=== PATIENT | female | born 1950 | race Caucasian/White ===

== ENCOUNTER 2018-11-09 15:50 | Emergency (ER) | payer MEDICARE, BC ==
[2018-11-09 16:06] VITALS: RESP 16; TEMP 97.8
[2018-11-09] MEDS ORDERED: LIDOCAINE 1% W/EPI MPF 30 ML SOL ONE (16:17)
[2018-11-09 16:52] VITALS: BP 135/69; PULSE 89; O2SAT 99
== END 2018-11-09 16:51 | disposition home or self-care (01) | DRG 204 ==
LOC: ED 15:50
DX: R91.8 Other nonspecific abnormal finding of lung field (principal); L76.22 Postprocedural hemorrhage of skin and subcutaneous tissue following other procedure
CPT/HCPCS: 99282; G0168; A6402

== ENCOUNTER 2019-01-08 12:00 | Inpatient (IN) | payer MEDICARE, BC ==
[2019-01-08] MEDS ORDERED: ALBUTEROL/IPRATROPIUM 1 VIAL SOL ONE (12:09)
[2019-01-08] MEDS ORDERED: ALBUTEROL/IPRATROPIUM 1 VIAL SOL INH ONE (12:12)
[2019-01-08 12:32] LABS: BASOPHILS % (AUTO) 1 % (0-3); EOSINOPHILS % (AUTO) 2 % (0-9); HEMATOCRIT 40 % (35-47); HEMOGLOBIN 12.6 gm/dl (12.0-15.5); LYMPHOCYTES % (AUTO) 16.8 % (10-50); MEAN CORPUSCULAR HEMOGLOBIN 27.5 pg (27.0-32.0); MEAN CORPUSCULAR HGB CONC 31.8 gm/dl (32.0-36.0); MEAN CORPUSCULAR VOLUME 86 fL (81-99); MONOCYTES % (AUTO) 15.7 % (0-12)
[2019-01-08 12:40] LABS: CALCIUM 9.4 mg/dl (8.5-10.1); CARBON DIOXIDE 26.1 mEq/L (21-32); CREATININE 0.9 mg/dl (0.60-1.00); POTASSIUM 3.7 mMol/L (3.5-5.1)
[2019-01-08] MEDS ORDERED: PROCHLORPERAZINE MALEATE 5 MG TAB PO PRN (15:30)
[2019-01-08] MEDS ORDERED: ONDANSETRON 4 MG ODT PO PRN (15:30)
[2019-01-08] MEDS ORDERED: LORAZEPAM 0.5 MG TAB PO PRN (15:30)
[2019-01-08] MEDS ORDERED: APAP/HYDROCODONE 325/7.5 TAB PO PRN (15:30)
[2019-01-08] MEDS: ALBUTEROL/IPRATROPIUM 1 VIAL SOL INH SCH ×2 (15:45→21:17)
[2019-01-08] MEDS ORDERED: SODIUM CHLORIDE 0.9% 50 ML 25 ML IV PRN (17:37)
[2019-01-08] MEDS ORDERED: CEFTRIAXONE 1 GM PDS 1 GM in SODIUM CHLORIDE 0.9% 50 ML 50 ML IV SCH (17:38)
[2019-01-08] MEDS: SOLUMEDROL 125 MG/2 ML 125 MG/2 ML PDS IV SCH ×2 (17:40→21:16)
[2019-01-08] MEDS: SODIUM CHLORIDE 0.9% FLUSH 10 ML SOL IV SCH ×3 (17:40→22:43)
[2019-01-08] MEDS ORDERED: CEFTRIAXONE 1 GM PDS ONE (17:47)
[2019-01-08] MEDS: ALBUTEROL NEB SOL 2.5MG/3ML 1 VIAL SOL NEB PRN ×2 (18:58→22:34)
[2019-01-08] MEDS ORDERED: APAP/HYDROCODONE 1 EACH TABLET PO PRN (19:43)
[2019-01-08] MEDS: TEMAZEPAM 15MG 15 MG CAP PO PRN (21:17)
[2019-01-09] MEDS: ALBUTEROL NEB SOL 2.5MG/3ML 1 VIAL SOL NEB PRN (02:24)
[2019-01-09] MEDS: SOLUMEDROL 125 MG/2 ML 125 MG/2 ML PDS IV SCH ×4 (03:44→21:04)
[2019-01-09] MEDS: ALBUTEROL/IPRATROPIUM 1 VIAL SOL INH SCH ×4 (03:44→21:04)
[2019-01-09] MEDS: SODIUM CHLORIDE 0.9% FLUSH 10 ML SOL IV SCH ×6 (03:46→23:36)
[2019-01-09] MEDS ORDERED: DM/GUAIFENESIN SYRUP 10 ML SYRP ONE (05:42)
[2019-01-09] MEDS: DM/GUAIFENESIN SYRUP 10 ML SYRP PO PRN (05:45)
[2019-01-09] MEDS: LEVOTHYROXINE SODIUM 50 MCG TAB PO SCH (07:09)
[2019-01-09 07:12] LABS: CALCIUM 9.2 mg/dl (8.5-10.1); CARBON DIOXIDE 22.3 mEq/L (21-32); POTASSIUM 3.7 mMol/L (3.5-5.1)
[2019-01-09 07:18] LABS: BASOPHILS % (AUTO) 0 % (0-3); EOSINOPHILS % (AUTO) 0 % (0-9); HEMATOCRIT 35 % (35-47); HEMOGLOBIN 11.8 gm/dl (12.0-15.5); LYMPHOCYTES % (AUTO) 8.2 % (10-50); MEAN CORPUSCULAR HEMOGLOBIN 28.5 pg (27.0-32.0); MEAN CORPUSCULAR HGB CONC 33.7 gm/dl (32.0-36.0); MEAN CORPUSCULAR VOLUME 85 fL (81-99); NEUTROPHILS % (AUTO) 89.5 % (37-80)
[2019-01-09] MEDS ORDERED: ATORVASTATIN 10 MG TAB PO SCH (09:00)
[2019-01-09] MEDS ORDERED: HEPARIN 500 Unit PRE-FILL 100 U/ML SOL IV ONE (09:18)
[2019-01-09] MEDS ORDERED: HEPARIN 500 Unit PRE-FILL 100 U/ML SOL IV PRN (09:22)
[2019-01-09] MEDS: PANTOPRAZOLE SODIUM 40 MG ECT PO SCH (10:05)
[2019-01-09] MEDS: SERTRALINE HYDROCHLORIDE 50 MG TAB PO SCH (10:05)
[2019-01-09] MEDS: AMLODIPINE 5 MG TAB PO SCH (10:05)
[2019-01-09] MEDS: ENOXAPARIN 40 MG SOL SC SCH (10:08)
[2019-01-09] MEDS ORDERED: CEFTRIAXONE 1 GM PDS ONE (15:18)
[2019-01-09] MEDS ORDERED: SODIUM CHLORIDE 0.9% 50 ML 50 ML IV ONE (15:19)
[2019-01-09] MEDS ORDERED: CEFTRIAXONE 1 GM PDS 1 GM in SODIUM CHLORIDE 0.9% 50 ML 50 ML IV SCH (18:00)
[2019-01-09] MEDS ORDERED: PANTOPRAZOLE SODIUM 40 MG ECT PO ONE (21:23)
[2019-01-09] MEDS: TEMAZEPAM 15MG 15 MG CAP PO PRN (21:47)
[2019-01-10] MEDS: DM/GUAIFENESIN SYRUP 10 ML SYRP PO PRN (00:55)
[2019-01-10] MEDS: ALBUTEROL NEB SOL 2.5MG/3ML 1 VIAL SOL NEB PRN (01:05)
[2019-01-10] MEDS: ALBUTEROL/IPRATROPIUM 1 VIAL SOL INH SCH ×2 (03:36→09:17)
[2019-01-10] MEDS: SODIUM CHLORIDE 0.9% FLUSH 10 ML SOL IV SCH ×3 (03:40→06:50)
[2019-01-10] MEDS: SOLUMEDROL 125 MG/2 ML 125 MG/2 ML PDS IV SCH ×2 (03:41→10:00)
[2019-01-10] MEDS: LEVOTHYROXINE SODIUM 50 MCG TAB PO SCH (06:17)
[2019-01-10 06:58] VITALS: BP 124/68; TEMP 97.9
[2019-01-10 07:05] LABS: BASOPHILS % (AUTO) 0 % (0-3); EOSINOPHILS % (AUTO) 0 % (0-9); HEMATOCRIT 36 % (35-47); LYMPHOCYTES % (AUTO) 2.6 % (10-50); MEAN CORPUSCULAR HEMOGLOBIN 28.5 pg (27.0-32.0); MEAN CORPUSCULAR HGB CONC 33.3 gm/dl (32.0-36.0); MEAN CORPUSCULAR VOLUME 85 fL (81-99)
[2019-01-10 07:14] LABS: CARBON DIOXIDE 24.5 mEq/L (21-32); CREATININE 1.03 mg/dl (0.60-1.00); POTASSIUM 3.7 mMol/L (3.5-5.1)
[2019-01-10 09:11] VITALS: RESP 18
[2019-01-10] MEDS: ENOXAPARIN 40 MG SOL SC SCH (09:13)
[2019-01-10] MEDS: PANTOPRAZOLE SODIUM 40 MG ECT PO SCH (09:16)
[2019-01-10] MEDS: SERTRALINE HYDROCHLORIDE 50 MG TAB PO SCH (09:16)
[2019-01-10] MEDS: AMLODIPINE 5 MG TAB PO SCH (09:16)
[2019-01-10 10:00] VITALS: PULSE 90; O2SAT 95
== END 2019-01-10 09:50 | disposition home or self-care (01) | DRG 191 ==
LOC: ED 12:00 → ACUTE CARE 14:15
PROVIDERS: ADMIT Family Medicine; ATTEND Family Medicine
DX: J44.9 Chronic obstructive pulmonary disease, unspecified (principal); J44.1 Chronic obstructive pulmonary disease with (acute) exacerbation; C34.11 Malignant neoplasm of upper lobe, right bronchus or lung; I10 Essential (primary) hypertension; E03.9 Hypothyroidism, unspecified; E78.5 Hyperlipidemia, unspecified; R06.02 Shortness of breath
CPT/HCPCS: 36415; 71045; 71275; 80048; 85025; 93005; 93012; 94150; 94664; 94760; 99283; 99284; J0696; J1644; J1650; J2930; J7613; Q9967; A6232; A9270-GY

== ENCOUNTER 2019-01-30 16:33 | Inpatient (IN) | payer MEDICARE, BC ==
[2019-01-30] MEDS ORDERED: SODIUM CHLORIDE 0.9% 1000ML 1,000 ML IV ONE (17:01)
[2019-01-30] MEDS ORDERED: ALBUTEROL/IPRATROPIUM 1 VIAL SOL INH PRN (17:01)
[2019-01-30] MEDS ORDERED: SOLUMEDROL 125 MG/2 ML 125 MG/2 ML PDS IV ONE (17:01)
[2019-01-30 17:13] LABS: HEMATOCRIT 34 % (35-47); HEMOGLOBIN 11.1 gm/dl (12.0-15.5); MEAN CORPUSCULAR HGB CONC 32.5 gm/dl (32.0-36.0); MEAN CORPUSCULAR VOLUME 86 fL (81-99)
[2019-01-30 17:29] LABS: ALBUMIN 2.8 gm/dl (3.4-5.0); ALKALINE PHOSPHATASE 72 IU/L (46-116); ALT 15 IU/L (14-63); AST 14 IU/L (15-37); BILIRUBIN,TOTAL 0.4 mg/dl (0.2-1.0); BLOOD UREA NITROGEN 14 mg/dl (7-18); CALCIUM 9.4 mg/dl (8.5-10.1); CARBON DIOXIDE 24.1 mEq/L (21-32); CHLORIDE 102 mMol/L (98-107); CREATININE 0.83 mg/dl (0.60-1.00); GLUCOSE 110 mg/dl (74-106); SODIUM 136 mMol/L (136-145); TOTAL PROTEIN 7.4 gm/dl (6.4-8.2); TROP I < 0.017 ng/ml (0.000-0.056)
[2019-01-30] MEDS: SODIUM CHLORIDE 0.9% FLUSH 10 ML SOL IV PRN (17:45)
[2019-01-30] MEDS ORDERED: ACETAMINOPHEN 325 MG PO ONE (17:45)
[2019-01-30] MEDS ORDERED: SOLUMEDROL 125 MG/2 ML 125 MG/2 ML PDS ONE (17:46)
[2019-01-30] MEDS ORDERED: ACETAMINOPHEN 325 MG ONE (17:46)
[2019-01-30] MEDS ORDERED: HEPARIN 500 Unit PRE-FILL 100 U/ML SOL IV PRN (17:46)
[2019-01-30] MEDS ORDERED: ALBUTEROL/IPRATROPIUM 1 VIAL SOL ONE (17:55)
[2019-01-30 18:03] LABS: ANISOCYTOSIS SLIGHT AMT; BAND NEUTROPHILS % (MANUAL) 1 %; BASOPHILS % (MANUAL) 2 % (0-3); EOSINOPHILS % (MANUAL) 2 % (0-9); LYMPHOCYTES % (MANUAL) 14 % (10-50); MONOCYTES % (MANUAL) 20 % (0-12); NEUTROPHILS % (MANUAL) 61 % (37-80)
[2019-01-30] MEDS ORDERED: AZITHROMYCIN 250 MG TAB PO ONE (18:48)
[2019-01-30] MEDS ORDERED: AZITHROMYCIN 250 MG TAB ONE (18:55)
[2019-01-30] MEDS ORDERED: CEFTRIAXONE 1 GM PDS 2 GM in SODIUM CHLORIDE 0.9% 100 ML 100 ML IV SCH (19:15)
[2019-01-30] MEDS ORDERED: SODIUM CHLORIDE 0.9% 100 ML 100 ML IV ONE (20:05)
[2019-01-30] MEDS ORDERED: CEFTRIAXONE 1 GM PDS ONE (20:05)
[2019-01-30] MEDS ORDERED: LORAZEPAM 0.5 MG TAB PO PRN ×2 (20:11)
[2019-01-30] MEDS ORDERED: APAP/HYDROCODONE 325/7.5 TAB PO PRN (20:11)
[2019-01-30] MEDS ORDERED: ALBUTEROL HFA 60 PUFF/INHALER INH PRN (20:11)
[2019-01-30] MEDS ORDERED: ALBUTEROL NEB SOL 2.5MG/3ML 1 VIAL SOL INH PRN (20:11)
[2019-01-30] MEDS ORDERED: TEMAZEPAM 15MG 15 MG CAP PO PRN (20:11)
[2019-01-30 20:34] LABS: INFLUENZA A NEGATIVE (NEGATIVE); INFLUENZA B NEGATIVE (NEGATIVE)
[2019-01-30] MEDS: ATORVASTATIN 10 MG TAB PO SCH (21:05)
[2019-01-30] MEDS: ALBUTEROL/IPRATROPIUM 1 VIAL SOL INH SCH (21:05)
[2019-01-30] MEDS: MAGNESIUM OXIDE 400 MG TAB PO SCH (21:05)
[2019-01-30] MEDS ORDERED: APAP/HYDROCODONE 1 EACH TABLET PO PRN (22:43)
[2019-01-31] MEDS: SOLUMEDROL 125 MG/2 ML 125 MG/2 ML PDS IV SCH ×3 (01:57→18:48)
[2019-01-31] MEDS: ALBUTEROL/IPRATROPIUM 1 VIAL SOL INH SCH ×4 (01:58→20:32)
[2019-01-31] MEDS: SODIUM CHLORIDE 0.9% FLUSH 10 ML SOL IV PRN ×5 (02:06→21:37)
[2019-01-31] MEDS: ALBUTEROL NEB SOL 2.5MG/3ML 1 VIAL SOL NEB PRN ×2 (04:51→23:39)
[2019-01-31] MEDS: LEVOTHYROXINE SODIUM 50 MCG TAB PO SCH (06:07)
[2019-01-31 07:29] LABS: ALBUMIN 2.6 gm/dl (3.4-5.0); ALKALINE PHOSPHATASE 69 IU/L (46-116); ALT 14 IU/L (14-63); AST 12 IU/L (15-37); BILIRUBIN,TOTAL 0.2 mg/dl (0.2-1.0); BLOOD UREA NITROGEN 17 mg/dl (7-18); CALCIUM 9.3 mg/dl (8.5-10.1); CARBON DIOXIDE 23.2 mEq/L (21-32); CHLORIDE 104 mMol/L (98-107); GLUCOSE 206 mg/dl (74-106); POTASSIUM 3.5 mMol/L (3.5-5.1); SODIUM 139 mMol/L (136-145); TOTAL PROTEIN 7.4 gm/dl (6.4-8.2); TROP I < 0.017 ng/ml (0.000-0.056)
[2019-01-31] MEDS ORDERED: SOLUMEDROL 125 MG/2 ML 125 MG/2 ML PDS IV SCH (07:30)
[2019-01-31 07:32] LABS: BASOPHILS % (AUTO) 1 % (0-3); EOSINOPHILS % (AUTO) 0 % (0-9); HEMATOCRIT 33 % (35-47); HEMOGLOBIN 10.6 gm/dl (12.0-15.5); LYMPHOCYTES % (AUTO) 6.7 % (10-50); MEAN CORPUSCULAR HEMOGLOBIN 28.2 pg (27.0-32.0); MEAN CORPUSCULAR HGB CONC 32.5 gm/dl (32.0-36.0); MEAN CORPUSCULAR VOLUME 87 fL (81-99); MONOCYTES % (AUTO) 8.3 % (0-12); NEUTROPHILS % (AUTO) 83.7 % (37-80)
[2019-01-31] MEDS ORDERED: ONDANSETRON 4 MG ODT PO PRN (08:00)
[2019-01-31] MEDS ORDERED: CEFTRIAXONE 1 GM (PREMIX) 1 GM/50 ML SOL IV SCH (09:00)
[2019-01-31] MEDS ORDERED: AZITHROMYCIN 500 MG PDS IV SCH (09:00)
[2019-01-31] MEDS: PANTOPRAZOLE SODIUM 40 MG ECT PO SCH (09:04)
[2019-01-31] MEDS: AZITHROMYCIN 250 MG TAB PO SCH (09:04)
[2019-01-31] MEDS: MAGNESIUM OXIDE 400 MG TAB PO SCH ×2 (09:05→20:34)
[2019-01-31] MEDS: SERTRALINE HYDROCHLORIDE 50 MG TAB PO SCH (09:05)
[2019-01-31] MEDS: CALCIUM CARBONATE 500 MG TAB PO SCH (09:06)
[2019-01-31] MEDS: AMLODIPINE 5 MG TAB PO SCH (09:06)
[2019-01-31] MEDS: ENOXAPARIN 40 MG SOL SC SCH (09:09)
[2019-01-31] MEDS ORDERED: CEFTRIAXONE 1 GM PDS ONE ×2 (09:19→21:21)
[2019-01-31] MEDS: CEFTRIAXONE 1 GM PDS 1 GM in SODIUM CHLORIDE 0.9% 50 ML 50 ML IV SCH ×2 (09:32→21:35)
[2019-01-31] MEDS: CHOLECALCIFEROL 1,000 IU (25 MCG) TAB PO SCH (12:33)
[2019-01-31] MEDS: LYSINE 500 MG PO SCH (12:34)
[2019-01-31] MEDS: ATORVASTATIN 10 MG TAB PO SCH (20:34)
[2019-01-31] MEDS ORDERED: SODIUM CHLORIDE 0.9% 50 ML 50 ML IV ONE (21:21)
[2019-02-01] MEDS: ALBUTEROL/IPRATROPIUM 1 VIAL SOL INH SCH ×4 (02:28→20:26)
[2019-02-01] MEDS: SOLUMEDROL 125 MG/2 ML 125 MG/2 ML PDS IV SCH ×2 (02:29→11:04)
[2019-02-01] MEDS: LEVOTHYROXINE SODIUM 50 MCG TAB PO SCH ×2 (05:51→07:56)
[2019-02-01] MEDS ORDERED: GUAIFENESIN 200 MG/10 ML SOL PO PRN (07:48)
[2019-02-01 08:00] LABS: BASOPHILS % (AUTO) 0 % (0-3); EOSINOPHILS % (AUTO) 0 % (0-9); HEMATOCRIT 31 % (35-47); HEMOGLOBIN 10.2 gm/dl (12.0-15.5); LYMPHOCYTES % (AUTO) 4.9 % (10-50); MEAN CORPUSCULAR HEMOGLOBIN 28.2 pg (27.0-32.0); MEAN CORPUSCULAR HGB CONC 32.3 gm/dl (32.0-36.0); MEAN CORPUSCULAR VOLUME 87 fL (81-99); MONOCYTES % (AUTO) 8.2 % (0-12); NEUTROPHILS % (AUTO) 86.5 % (37-80)
[2019-02-01 08:14] LABS: CALCIUM 9.3 mg/dl (8.5-10.1); CARBON DIOXIDE 25.1 mEq/L (21-32); CREATININE 0.81 mg/dl (0.60-1.00); POTASSIUM 4.2 mMol/L (3.5-5.1)
[2019-02-01] MEDS: ENOXAPARIN 40 MG SOL SC SCH (08:52)
[2019-02-01] MEDS: CHOLECALCIFEROL 1,000 IU (25 MCG) TAB PO SCH (08:54)
[2019-02-01] MEDS: LYSINE 500 MG PO SCH (08:54)
[2019-02-01] MEDS: CALCIUM CARBONATE 500 MG TAB PO SCH (08:55)
[2019-02-01] MEDS: AZITHROMYCIN 250 MG TAB PO SCH (08:55)
[2019-02-01] MEDS: MAGNESIUM OXIDE 400 MG TAB PO SCH ×2 (08:55→20:25)
[2019-02-01] MEDS: AMLODIPINE 5 MG TAB PO SCH (08:55)
[2019-02-01] MEDS: SERTRALINE HYDROCHLORIDE 50 MG TAB PO SCH (08:55)
[2019-02-01] MEDS: PANTOPRAZOLE SODIUM 40 MG ECT PO SCH (08:55)
[2019-02-01] MEDS: CEFDINIR 300 MG CAP PO SCH ×2 (10:39→20:25)
[2019-02-01] MEDS: PREDNISONE 20 MG TAB PO SCH (12:45)
[2019-02-01] MEDS: ATORVASTATIN 10 MG TAB PO SCH (20:25)
[2019-02-02] MEDS: ALBUTEROL/IPRATROPIUM 1 VIAL SOL INH SCH ×2 (02:41→08:08)
[2019-02-02] MEDS: ALBUTEROL NEB SOL 2.5MG/3ML 1 VIAL SOL NEB PRN (03:21)
[2019-02-02] MEDS: LEVOTHYROXINE SODIUM 50 MCG TAB PO SCH (06:44)
[2019-02-02 08:07] VITALS: BP 136/71; RESP 20; TEMP 98.3
[2019-02-02 08:31] VITALS: PULSE 72; O2SAT 96
[2019-02-02] MEDS: SODIUM CHLORIDE 0.9% FLUSH 10 ML SOL IV PRN (09:06)
[2019-02-02] MEDS: SERTRALINE HYDROCHLORIDE 50 MG TAB PO SCH (09:07)
[2019-02-02] MEDS: CHOLECALCIFEROL 1,000 IU (25 MCG) TAB PO SCH (09:07)
[2019-02-02] MEDS: CEFDINIR 300 MG CAP PO SCH (09:07)
[2019-02-02] MEDS: PANTOPRAZOLE SODIUM 40 MG ECT PO SCH (09:07)
[2019-02-02] MEDS: AMLODIPINE 5 MG TAB PO SCH (09:07)
[2019-02-02] MEDS: LYSINE 500 MG PO SCH (09:07)
[2019-02-02] MEDS: CALCIUM CARBONATE 500 MG TAB PO SCH (09:08)
[2019-02-02] MEDS: PREDNISONE 20 MG TAB PO SCH (09:08)
[2019-02-02] MEDS: AZITHROMYCIN 250 MG TAB PO SCH (09:08)
[2019-02-02] MEDS: ENOXAPARIN 40 MG SOL SC SCH (09:10)
[2019-02-02] MEDS: MAGNESIUM OXIDE 400 MG TAB PO SCH (09:10)
== END 2019-02-02 10:30 | disposition home or self-care (01) | DRG 190 ==
LOC: ED 16:33 → UNDOADMIN 19:11 → ACUTE CARE 19:11
PROVIDERS: ADMIT Internal Medicine; ATTEND Internal Medicine
DX: J44.1 Chronic obstructive pulmonary disease with (acute) exacerbation (principal); J18.9 Pneumonia, unspecified organism; C34.11 Malignant neoplasm of upper lobe, right bronchus or lung; R06.02 Shortness of breath; I10 Essential (primary) hypertension; E03.9 Hypothyroidism, unspecified
CPT/HCPCS: 36415; 36591; 71045; 71046; 80048; 80053; 83880; 84484; 85007; 85025; 85027; 87040; 87804; 93005; 94150; 94762; 96365; 96366; 96374; 99070; 99223; 99291; J0696; J1644; J1650; J2930; J7613; A9270-GY

== ENCOUNTER 2019-03-22 19:57 | Emergency (ER) | payer MEDICARE, BC ==
[2019-03-22] MEDS ORDERED: ALBUTEROL/IPRATROPIUM 1 VIAL SOL ONE (20:40)
[2019-03-22 20:46] VITALS: TEMP 97.3
[2019-03-22] MEDS ORDERED: ALBUTEROL/IPRATROPIUM 1 VIAL SOL INH ONE (20:46)
[2019-03-22] MEDS ORDERED: SOLUMEDROL 125 MG/2 ML 125 MG/2 ML PDS IV ONE (20:59)
[2019-03-22] MEDS ORDERED: ALBUTEROL NEB SOL 2.5MG/3ML 1 VIAL SOL NEB ONE (20:59)
[2019-03-22] MEDS ORDERED: ALBUTEROL NEB SOL 2.5MG/3ML 1 VIAL SOL ONE (21:04)
[2019-03-22] MEDS ORDERED: SOLUMEDROL 125 MG/2 ML 125 MG/2 ML PDS ONE (21:04)
[2019-03-22] MEDS ORDERED: SODIUM CHLORIDE 0.9% FLUSH 10 ML SOL IV PRN (21:18)
[2019-03-22 21:25] LABS: LACTIC ACID 0.8 mMol/L (0.0-2.0)
[2019-03-22 21:41] LABS: BASOPHILS % (AUTO) 1 % (0-3); EOSINOPHILS % (AUTO) 4 % (0-9); HEMATOCRIT 42 % (35-47); HEMOGLOBIN 13.5 gm/dl (12.0-15.5); LYMPHOCYTES % (AUTO) 11.8 % (10-50); MEAN CORPUSCULAR HEMOGLOBIN 31.1 pg (27.0-32.0); MEAN CORPUSCULAR HGB CONC 32.3 gm/dl (32.0-36.0); MEAN CORPUSCULAR VOLUME 96 fL (81-99); MONOCYTES % (AUTO) 15.5 % (0-12); NEUTROPHILS % (AUTO) 67.7 % (37-80)
[2019-03-22 21:43] LABS: ALBUMIN 3.4 gm/dl (3.4-5.0); ALKALINE PHOSPHATASE 72 IU/L (46-116); ALT 18 IU/L (14-63); AST 15 IU/L (15-37); BILIRUBIN,TOTAL 0.4 mg/dl (0.2-1.0); BLOOD UREA NITROGEN 21 mg/dl (7-18); CALCIUM 9.5 mg/dl (8.5-10.1); CARBON DIOXIDE 27.2 mEq/L (21-32); CHLORIDE 104 mMol/L (98-107); GLUCOSE 102 mg/dl (74-106); TOTAL PROTEIN 7.3 gm/dl (6.4-8.2); TROP I < 0.017 ng/ml (0.000-0.056)
[2019-03-23 00:29] VITALS: BP 128/65; PULSE 81; RESP 22; O2SAT 93
== END 2019-03-23 00:25 | disposition home or self-care (01) | DRG 192 ==
LOC: ED 19:57
DX: J44.1 Chronic obstructive pulmonary disease with (acute) exacerbation (principal); R06.02 Shortness of breath; R53.1 Weakness; E03.9 Hypothyroidism, unspecified
CPT/HCPCS: 36415; 71045; 80053; 83605; 83880; 84484; 85025; 87040; 93005; 96374; 99284; 99285; J2930; J7613

== ENCOUNTER 2019-04-04 13:33 | Emergency (ER) | payer MEDICARE, BC ==
[2019-04-04 13:42] VITALS: TEMP 96
[2019-04-04] MEDS ORDERED: SOLUMEDROL 125 MG/2 ML 125 MG/2 ML PDS IM ONE (13:59)
[2019-04-04] MEDS ORDERED: ALBUTEROL/IPRATROPIUM 1 VIAL SOL INH ONE (14:00)
[2019-04-04] MEDS ORDERED: ALBUTEROL/IPRATROPIUM 1 VIAL SOL ONE (14:02)
[2019-04-04] MEDS ORDERED: SOLUMEDROL 125 MG/2 ML 125 MG/2 ML PDS ONE (14:03)
[2019-04-04 14:28] LABS: BASOPHILS % (AUTO) 0 % (0-3); EOSINOPHILS % (AUTO) 5 % (0-9); HEMATOCRIT 43 % (35-47); HEMOGLOBIN 14.1 gm/dl (12.0-15.5); MEAN CORPUSCULAR HGB CONC 32.5 gm/dl (32.0-36.0); MEAN CORPUSCULAR VOLUME 98 fL (81-99); MONOCYTES % (AUTO) 7.2 % (0-12); NEUTROPHILS % (AUTO) 80.8 % (37-80)
[2019-04-04 14:35] LABS: ABG PH 7.46 (7.35-7.45)
[2019-04-04 14:38] LABS: ALBUMIN 3.3 gm/dl (3.4-5.0); BILIRUBIN,TOTAL 0.5 mg/dl (0.2-1.0); CALCIUM 9.3 mg/dl (8.5-10.1); CARBON DIOXIDE 31.9 mEq/L (21-32); CREATININE 1.1 mg/dl (0.60-1.00); TOTAL PROTEIN 7.2 gm/dl (6.4-8.2)
[2019-04-04 15:55] VITALS: RESP 20
[2019-04-04 15:57] VITALS: BP 129/74; PULSE 89; O2SAT 91
== END 2019-04-04 15:47 | disposition home or self-care (01) | DRG 181 ==
LOC: ED 13:33
DX: C34.91 Malignant neoplasm of unspecified part of right bronchus or lung (principal); J44.1 Chronic obstructive pulmonary disease with (acute) exacerbation; R06.02 Shortness of breath
CPT/HCPCS: 80053; 82803; 85025; 96372; 99282; 99283; J2930

== ENCOUNTER 2019-04-19 09:44 | Emergency (ER) | payer MEDICARE, BC ==
[2019-04-19] MEDS ORDERED: SOLUMEDROL 125 MG/2 ML 125 MG/2 ML PDS IV ONE (10:11)
[2019-04-19] MEDS ORDERED: ALBUTEROL NEB SOL 2.5MG/3ML 1 VIAL SOL NEB ONE (10:11)
[2019-04-19] MEDS ORDERED: SOLUMEDROL 125 MG/2 ML 125 MG/2 ML PDS ONE (10:33)
[2019-04-19] MEDS ORDERED: ALBUTEROL NEB SOL 2.5MG/3ML 1 VIAL SOL ONE ×2 (10:33→10:44)
[2019-04-19 10:41] LABS: BASOPHILS % (AUTO) 0 % (0-3); EOSINOPHILS % (AUTO) 8 % (0-9); HEMATOCRIT 43 % (35-47); LYMPHOCYTES % (AUTO) 9.5 % (10-50); MEAN CORPUSCULAR HGB CONC 32.3 gm/dl (32.0-36.0); MONOCYTES % (AUTO) 9.9 % (0-12); NEUTROPHILS % (AUTO) 71.8 % (37-80)
[2019-04-19 10:58] LABS: ALBUMIN 3.3 gm/dl (3.4-5.0); ALKALINE PHOSPHATASE 68 IU/L (46-116); ALT 20 IU/L (14-63); AST 14 IU/L (15-37); BILIRUBIN,TOTAL 0.3 mg/dl (0.2-1.0); BLOOD UREA NITROGEN 15 mg/dl (7-18); CALCIUM 9.2 mg/dl (8.5-10.1); CARBON DIOXIDE 27.6 mEq/L (21-32); CHLORIDE 107 mMol/L (98-107); CRP INFLAMMATORY 0.13 mg/dl (0.00-0.33); GLUCOSE 133 mg/dl (74-106); MAGNESIUM 1.5 mg/dl (1.8-2.4); TOTAL PROTEIN 7.2 gm/dl (6.4-8.2); TROP I < 0.017 ng/ml (0.000-0.056)
[2019-04-19 11:00] LABS: MEAN CORPUSCULAR VOLUME 99 fL (81-99)
[2019-04-19 12:36] VITALS: BP 135/73; PULSE 82; RESP 20; TEMP 97; O2SAT 94
== END 2019-04-19 12:30 | disposition home or self-care (01) | DRG 204 ==
LOC: ED 09:44
DX: R06.00 Dyspnea, unspecified (principal); J44.1 Chronic obstructive pulmonary disease with (acute) exacerbation; R06.02 Shortness of breath
CPT/HCPCS: 36415; 71046; 80053; 83735; 84484; 85025; 85379; 86140; 93005; 96374; 99284; J2930; J7613